=== PATIENT | female | born 1975 ===

== ENCOUNTER 2023-09-05 21:12 | Inpatient (IN) | payer OTHER, BC, SELFPAY ==
[2023-09-05 13:08] VITALS: BP 149/94
[2023-09-05 13:30] LABS: Urine Albumin Negative (Neg - Trace); Urine Bilirubin Negative (Negative); Urine Character Clear (Clear); Urine Color Yellow; Urine Glucose Negative (Negative); Urine Ketone Trace (Negative); Urine Leukocyte Trace (Negative); Urine Nitrite Negative (Negative); Urine Occult Blood Negative (Negative); Urine Specific Gravity 1.025 (<1.030); Urine Urobilinogen Negative (Neg - 1+)
[2023-09-05 13:30] LABS: % Basophils 0.3 % (0-2); % Eosinophils 3.1 % (0-6); % Immature Granulocytes 0.3 % (0-0.5); % Lymphocytes 32.6 % (20.5-51.1); % Monocytes 5.4 % (1.7-9.3); % Neutrophils 58.3 % (42.2-75.2); Absolute Eosinophils 0.2 10^3/uL (0-0.7); Absolute Monocytes 0.3 10^3/uL (0.1-0.6); Absolute Neutrophils 3.6 10^3/uL (1.4-6.5); Hematocrit 37.2 % (37.0-47.0); Hemoglobin 12.7 g/dL (12.0-16.0); Mean Corp Hgb Conc. 34.1 g/dL (33.0-37.0); Mean Corpuscular Hgb 29.6 pg (27.0-31.0); Mean Corpuscular Volume 86.7 fL (81.0-99.0); Nucleated Red Blood Cells % 0 %; Platelet Count 335 10^3/uL (130-400); Red Blood Cell Count 4.29 10^6/uL (4.20-5.40); Red Cell Dist. Width 13.1 % (11.5-14.5); White Blood Cell Count 6.1 10^3/uL (4.8-10.8)
[2023-09-05 13:45] LABS: Urine Mucus Many; Urine Red Blood Cell 0-2 /HPF (0-2); Urine Squamous Cell >30 /LPF (Few)
[2023-09-05 13:46] LABS: Urine Bacteria Few (Negative)
[2023-09-05 13:50] LABS: ALT (SGPT) 35 U/L (0-35); AST (SGOT) 34 U/L (14-36); Albumin 4.4 g/dl (3.5-5.0); Alkaline Phosphatase 96 U/L (38-126); Blood Urea Nitrogen 10 mg/dl (7-17); Calcium 8.8 mg/dl (8.4-10.2); Carbon Dioxide 26 mmol/L (22-30); Chloride 106 mmol/L (98-107); Glucose 79 mg/dl (70-99); Lipase 186 U/L (23-300); Potassium 3.9 mmol/L (3.5-5.1); Sodium 138 mmol/L (135-145); Total Bilirubin 0.5 mg/dl (0.2-1.3); Total Protein 7.1 g/dl (6.3-8.2); eGFR > 60.00
--- NOTE | 2023-09-05 16:19 | ED.GENMED ---
History of Present Illness
General
Chief Complaint: Abdominal Symptoms
Source: patient
Time Seen by Provider: 09/05/23 15:52
Travel History
Have you had any contact with someone who has COVID-19?: No
Do you have any symptoms of coronavirus? Fever > 100 degrees, chills, cough, shortness of breath, sore throat, loss of taste or smell, muscle aches, or headache?: No
History of Present Illness
History of Present Illness:
This patient is a very pleasant 47-year-old female who states she has had abdominal pain on the left upper quadrant extending the left lower quadrant for about 3 weeks. The pain is constant without exacerbating relieving factors, and is getting
progressively worse which prompted her visit here. She notes slight nausea but denies vomiting, anorexia, fever, chills, chest pain, dyspnea. She denies urinary symptoms. About 2 days ago, she noted occasional whitish foul-smelling discharge from
her umbilicus. She is unable to express that now.
Past History
Past History
ED Past Medical History: Other (Primary immunodeficiency, anxiety)
ED Past Surgical History: Other (Gastric vertical sleeve which was then converted to gastric bypass, lysis of adhesions, x 3, peritoneal ectomy, cholecystectomy)
Social History
Tobacco: Non-smoker
Alcohol: Occasional
Drug: None
Personal:
Living: with family
Phy Exam
Physical Exam
Physical Exam:
GENERAL: Alert , in no apparent distress
EYE: pupils equal and reactive
NECK: Supple, no significant adenopathy.
ENT: o/p clr, mmm.
CARDIAC: Regular rate and rhythm .
LUNGS: Clear breath sounds bilaterally, no acute respiratory distress, no wheezes/rales/rhonchi
ABDOMEN: Soft, mild left sided tenderness, no r/g, no cvat, no redness warmth swelling or discharge noted throughout abdominal wall including umbilicus
NEUROLOGICAL: Alert and oriented, no focal neuro deficits
SKIN: Warm and dry, skin intact.
MUSCULOSKELETAL: No edema, well perfused.
PSYCH: Normal and appropriate interaction.
Course
Orders/Labs/Results
Orders:
Orders
09/05/23 13:17
Complete Blood Count/With Diff Urgent
Comprehensive Metabolic Panel Urgent
Lipase Urgent
09/05/23 13:24
HCG, Urine Qualitative Screen Urgent
Date Specimen was Collected: 09/05/23
Time Specimen was Collected: 13:23
Comment: ADD ON
Urinalysis Reflex To Culture Urgent
Date Specimen was Collected: 09/05/23
Time Specimen was Collected: 13:23
Urine Microscopic Reflex Cult Urgent
09/05/23 Dinner
Clear Liquid
At Your Request: Full Participation
09/05/23 16:18
CT Abd/pel W Iv And Oral Contr Urgent
Comment:
Reason For Exam: HX GASTRIC BYPASS, L ABD PAIN PUS FROM UMBILICUS
Iohexol [Omnipaque] See Protocol PO NOW STA
09/05/23 16:19
Morphine Sulfate 4 mg IV NOW STA
09/05/23 16:42
Add On- LAB Urgent
Tests Added?: hcg qualitative, urine
09/05/23 18:14
Morphine Sulfate 4 mg IV NOW STA
09/05/23 19:42
Ketorolac [Toradol] 15 mg IV NOW STA
Piperacillin/Tazo 3.375 Gram [Zosyn] 3.375 gram in 50 ml IV NOW
09/05/23 20:48
Admit/Transfer Patient As Directed
Co-Sign Provider:
Level of Care: Inpatient admission
Assign to:: Medical/Surgical
Physician / Group: miguel smart
Diagnosis: abd pain w/ peritoneal tract to umbilicus
Reason for Hospitalization: abd pain w/ peritoneal tract to umbilicus
Expected length of stay greater than two midnights?: Yes
ELOS- Estimated Length of Stay in days: 3
I certify the patient meets the requirements for IP care: Yes
Code Status As Directed
Resuscitation Status: Full Code
09/05/23 20:53
SURGICAL CONSULT Routine
Consulting Provider: Keanu Montilla
Was physician already notified: Yes
Reason for consult: abd pain with peritoneal tract to umbilicus
09/05/23 22:39
Escitalopram Oxalate [Lexapro] 20 mg PO HS
Morphine Sulfate 2 mg IV Q4HPRN PRN
Ondansetron Injectable [Zofran] 4 mg IV Q6HPRN PRN
09/05/23 22:39
Activity As Directed
Activity Level: As Tolerated
Pneumatic Compression Sleeves As Directed
Type: Knee high
Vital Signs As Directed
Frequency: Per unit guidelines
Pt Eval And Treat Routine
Activity Level: As Tolerated
DX Deep Vein Thrombosis Video Routine
09/05/23 22:44
Morphine Sulfate 4 mg IV Q4HPRN PRN
09/06/23 02:00
Piperacillin/Tazo 3.375 Gram [Zosyn] 3.375 gram in 50 ml IV Q6H
09/06/23 05:49
Basic Metabolic Panel IN AM
Complete Blood Count/With Diff IN AM
Abnormal Lab Results
09/05/23 09/05/23
13:17 13:24
Creatinine 0.4 L mg/dL
(0.6-1.0)
Urine Ketones Trace A
(Negative)
Leukocyte Esterase Rfl Trace A
(Negative)
Urine Bacteria (Reflex) Few A
(Negative)
09/05/23 13:17
09/05/23 13:17
Vital Signs
Initial and Last Documented VS:
Initial Vital Signs
Temp Pulse Resp BP Pulse Ox
98.2 F 79 16 149/94 98
09/05/23 13:08 09/05/23 13:08 09/05/23 13:08 09/05/23 13:08 09/05/23 13:08
Last Documented Vital Signs
Temp Pulse Resp BP Pulse Ox
98.1 F 78 17 134/81 96
09/06/23 08:00 09/06/23 08:00 09/06/23 08:00 09/06/23 08:00 09/06/23 08:00
*Critical Care Note
Total Time (30-74mins, 75-104mins- exclusive of procedures): Not Applicable
Update Note
Update Note:
Patient presents to the Emergency Department with __abdominal pain
Number and Complexity of Problems Addressed at the Encounter
� Chronic conditions affecting care:
� Acute Exacerbation and/or Progression of Chronic Illness:
� Differential Diagnosis includes: But not limited to kidney stone, diverticulitis, intra-abdominal abscess, etc.
Amount and/or Complexity of Data to be Reviewed and Analyzed
� I performed an independent evaluation of and my interpretation is:
EKG:
CT:Edematous changes of the superficial fatty soft tissues of the anterior abdominal wall including about the umbilicus. Thin oblique umbilical 'tract' from the anterior peritoneum to the skin surface of the umbilicus without
discrete accompanying well-formed abnormal focal fluid collection.
Xrays:
Laboratory Studies:generally unremarkable
Other:
� Review of other/old records reveals:
� Clinical information was obtained by an independent historian:
� Prescriptions/Medications Considered but not given:
� Further testing considered but not performed:
Risk of Complications and/or Morbidity or Mortality of Patient Management
� Social determinants of health affecting care:
� Discussion with other providers (PCP, Hospitalists, Consultants, etc): 745 pm Pt wtill with pain and mild ttp, no r/g. Not septic. CT noted, no obstruction, abscess, etc however tract noted. Given immunodeficiency, will
adminster IV abx, surgical c/s in AM to assess further, hospitalist aware. (D/w dr Montilla).
� Escalation of care including admission/observation vs risk of discharge considered:
ED Attending Note
-
Portions of this chart may have been created with voice recognition software.� Occasional wrong word or��sound alike� substitutions may have occurred due to the inherent limitations of voice recognition software.
Discharge Plan
Departure
Patient Disposition: Admit
Date of Disposition: 09/05/23
Time of Disposition: 19:45
Admit to: Med/Surg
Presentation/result/management discussed w/ accepting MD/DO: Hospitalist
Condition: Fair
Discharge Problem:
Abdominal pain
Interventions
Interventions:
*Risk Screen - Suicide Last Done: 09/05/23 17:52
*General Assessment Last Done: 09/05/23 17:52
*Neglect/Abuse Screening Last Done: 09/05/23 17:52
ED- Fall Risk Assessment Last Done: 09/06/23 07:05
*ED COVID-19 Vaccine History Last Done: 09/05/23 13:08
*Nursing Disposition Last Done: 09/06/23 07:05
BJ-Nbicmu-Urarmfrgrj Assessment Last Done: 09/06/23 00:00
Discharge Date and Time
Discharge Date/Time: 09/06/23 14:13
[2023-09-05] MEDS: MORPHINE SULFATE 4 MG IV ×2 (16:32→18:18)
[2023-09-05] MEDS: OMNIPAQUE 50 ML PO (16:33)
[2023-09-05 17:17] LABS: HCG, Urine Qualitative Screen Negative
[2023-09-05 18:04] VITALS: BP 134/93
[2023-09-05] MEDS: ZOSYN 50 IV (19:48)
[2023-09-05] MEDS: TORADOL 15 MG IV (19:48)
--- NOTE | 2023-09-05 19:59 | HPS.HSE ---
Family Physician
<EARL Lombardi - Last Filed: 09/05/23 20:55>
-
Family Physician: Nick Quintero MD
Chief Complaint
<EARL Lombardi - Last Filed: 09/05/23 20:55>
-
abd pain x 3 weeks, umbilical drainage 1 day
History of Present Illness
47-year-old female complaining of abdominal pain left upper quadrant to left lower quadrant for approximately 3 weeks progressively getting worse. She noted some white malodorous white drainage from her umbilicus. The patient on Wegovy for the
last 8 months has chronic pudding-like stool. She has not noted any changes in her stool pattern. She does have multiple old laparoscopic sites around umbilicus and left side of abdomen due to gastric sleeve/bypass. She has past medical history
of primary immunodeficiency, anxiety, gastric sleeve 2016 converted to gastric bypass 2019, abdominoplasty with 160 degree Panniculectomy, 2018 history of abdominal lysis of adhesions section x 3, cholecystectomy
Medical History
<EARL Lombardi - Last Filed: 09/05/23 20:55>
Past Medical History
Past Medical History: Reports Other
Additional Past Medical History:
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
anxiety
Past Surgical History: Reports Other
Additional Past Surgical History:
gastric sleeve 2016 converted to gastric bypass fall 2018
Abdominoplasty with panniculectomy 160 degree
history of abdominal lysis of adhesions
section x 3
cholecystectomy
Sinus surgery
Tonsillectomy
Social History
Tobacco: Non-smoker
Alcohol: None
Drug: None
Personal:
Living: With Family
Employment: Employed
Family History
Family History: Other (Father living colon cancer remission, active small cell lung cancer mom living past medical history of PE, primary immunodeficiency (specific antibody deficiency), oldest son also with same)
Allergies / Home Medications
Allergies reflects when Allergies were last updated in [employer].
Home Medications with original date entered in [employer]
Allergy/Medication List:
Allergies
Allergy/AdvReac Type Severity Reaction Status Date / Time
acetaminophen [From Vicodin] Allergy Swelling Verified 09/05/23 13:12
hydrocodone [From Vicodin] Allergy Swelling Verified 09/05/23 13:12
Home Medications
Hizentra 0 mg SC BOWENS 09/05/23
escitalopram oxalate 20 mg tablet 20 mg PO HS 09/05/23
semaglutide (weight loss) 1.7 mg/0.75 mL subcutaneous pen injector (Wegovy) 1.7 mg SC SA 09/05/23
Review of Systems
<EARL Lombardi - Last Filed: 09/05/23 20:55>
-
History Source: Patient
A 12 point ROS was completed and negative except as noted: Yes
Constitutional: Denies Fever or Chills
EENT: Denies Runny Nose
Respiratory: Denies Cough or Trouble Breathing
Cardiac: Denies Chest Pain or Diaphoresis
Abdomen/GI: Reports Abdominal Pain (Umbilicus to left side abdomen in the left lower quadrant) and Other (Chronic pudding-like stools x 8 months while on Wegovy); Denies Nausea, Vomiting, Diarrhea, Constipated, Bloody Stools or Black Stools
: Denies Dysuria, Frequency, Flank Pain, Incontinence, Difficulty Voiding or Urgency
Musculoskeletal: Denies Joint Pain or Edema
Skin: Denies Itching or Rash
Neurological: Denies Dizzy, Headache or Weakness
Endocrine: Reports No Symptoms
Hematologic/Lymphatic: Reports No Symptoms
Psych: Reports Calm
Physical Exam
<EARL Lombardi - Last Filed: 09/05/23 20:55>
Vital Signs
Vital Signs
Temp Pulse Resp BP Pulse Ox
98.2 F 71 16 134/93 98
09/05/23 13:08 09/05/23 18:04 09/05/23 13:08 09/05/23 18:04 09/05/23 13:08
Physical Exam
General: Comfortable and Conversant; No Fever or Chills
HEENT: NormoCephalic, Anicteric, Moist mucous membranes, PERRLA, [place] Conjunctivae and No Ptosis
Respiratory: Clear; No Wheezes, Rales or Rhonchi
Cardiac: S1/S2 and Regular Rhythm; No Murmur, Rub, Gallop or Peripheral Edema
Breast: Deferred by me
GI: Soft, Non Distended, Normal Bowel Sounds and Tender (Left mid to left lower quadrant abdomen and around umbilicus no current drainage from umbilicus, several areas of old scarring from laparoscopic abdominal sites around [place] and left side
abdomen)
Rectal: Deferred by Provider
Genito-urinary: Deferred by me
Musculoskeletal: No Clubbing, No Cyanosis and No Edema
Skin: Warm and Dry; No Rash
Neuro: AO x 3, No Motor Deficits, Nonfocal/grossly intact, Cranial Nerves Intact and No Sensory Deficits; No Slurred Speech, Facial Droop or Tremors
Psych: Calm
Laboratory Results
<EARL Lombardi - Last Filed: 09/05/23 20:55>
-
09/05/23 13:17
09/05/23 13:17
Laboratory Results
Total Bilirubin 0.5 mg/dl (0.2-1.3) 09/05/23 13:17
AST 34 U/L (14-36) 09/05/23 13:17
ALT 35 U/L (0-35) 09/05/23 13:17
Alkaline Phosphatase 96 U/L (38-126) 09/05/23 13:17
Lipase 186 U/L (23-300) 09/05/23 13:17
Impression/Plan
<EARL Lombardi - Last Filed: 09/05/23 20:55>
-
Impression/plan:
INpt MedSurg
#ABD pain/umbilical drainage secondary to tract and anterior peritoneum likely 2/2 to multiple laproscopic abd procedures
-Consult Surgery dr romero aware
-IV Zosyn
-Morphine as needed pain
-Follow CBC, BMP
CT abdomen pelvis with IV and oral contrast:
1. Edematous changes of the fatty soft tissues anterior abdominal wall including the umbilicus with umbilical tract from the anterior peritoneum to the skin surface without discrete well-formed focal fluid collection
2. Distal small bowel and large bowel Limited evaluation without oral contrast opacification
3. IUD seen in uterus
4. Prior cholecystectomy
5. Small hiatal hernia
#Hx gastric sleeve 2016 converted to gastric bypass 2019
#Abdominoplasty with 160 panniculectomy 2018
#History lysis of adhesions
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
oldest son also with same
-Patient follows with immunology at [facility]
#Anxiety
-Continue Lexapro
Obesity due to excess calorie consumption
Patient on Wegovy for the last 8 months has chronic pudding-like stool
DVT prophylaxis
SCDs
Full code
<Poppy Hanna MD - Last Filed: 09/05/23 21:15>
-
Impression/plan:
INpt MedSurg
#ABD pain/umbilical drainage secondary to tract and anterior peritoneum likely 2/2 to multiple laproscopic abd procedures
-Consult Surgery dr romero aware
-IV Zosyn
-Morphine as needed pain
-Follow CBC, BMP
CT abdomen pelvis with IV and oral contrast:
1. Edematous changes of the fatty soft tissues anterior abdominal wall including the umbilicus with umbilical tract from the anterior peritoneum to the skin surface without discrete well-formed focal fluid collection
2. Distal small bowel and large bowel Limited evaluation without oral contrast opacification
3. IUD seen in uterus
4. Prior cholecystectomy
5. Small hiatal hernia
#Hx gastric sleeve 2016 converted to gastric bypass 2019
#Abdominoplasty with 160 panniculectomy 2018
#History lysis of adhesions
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
oldest son also with same
-Patient follows with immunology at [facility]
#Anxiety
-Continue Lexapro
Obesity due to excess calorie consumption
Patient on Wegovy for the last 8 months has chronic pudding-like stool
DVT prophylaxis
SCDs
Full code
Seen and examined and discussed with nurse practitioner in detail I am in agreement with plan and management mentioned by nurse practitioner.
Seen and examined, awake and alert, presented to the hospital complaining of pain in the right and left side abdominal pain were also having some purulent discharge from the umbilicus, she is injecting herself.
With GLP-1 and some other biological agent.
CT showed subcutaneous abscess
Vital signs reviewed
Physical exam:
General: Awake, alert and oriented x3, not in distress and holds appropriate conversation.
HEENT: No active discharge, ecchymosis or bruising, moist lips, tongue and mucous membrane.
Eyes: No discharge or red conjunctiva, no nystagmus, pupils are reactive and equal
Neck:Supple, no JVD no bruit no goiter.
Respiratory: Normal AP contour and diameter, normal chest wall movement, normal respiratory effort, no respiratory distress,
Lungs: Good air entry bilaterally, no wheezing or rhonchi, no rales or crackles
Heart: S1, S2 regular, normal rate, no added sound.
Gastrointestinal: Ecchymosis and bruising, positive bowel sounds, soft, tenderness in the left side and periumbilical area, no guarding or rigidity or organomegaly
Musculoskeletal: , no chest wall abnormality or tenderness. All joints and extremities have good range of motion, no muscle tenderness or any joint swelling or tenderness.
Extremities: No pitting edema, good peripheral pulses, good range of motion
Skin: Warm and dry, no ulceration, normal color.
Neurological: Awake, alert and oriented x3, speech clear and comprehensive, good muscle tone, normal sensory and motor function
Psychiatric: Normal mood, normal thought and judgment, normal affect,
Workup including labs, imaging, EKG and archive reviewed.
Assessment and plan:
Abdominal pain, concerning for percutaneous abscess with tracking may be deep down, may be triggered by the subcutaneous injection she get with GLP-1 and Hizentra and other causes may need to be considered
IV Vanco and Zosyn
Surgery consult, surgery been contacted.
Culture of the drainage if any
Chronic immunodeficiency syndrome
GERD biological agent
Anxiety on Lexapro
All discussed with the patient and the family
Discussed with nurse practitioner
[2023-09-05 20:06] VITALS: BP 130/87
[2023-09-05 21:56] VITALS: BMI 28.9
[2023-09-05 22:14] VITALS: BP 142/93
[2023-09-05 22:25] VITALS: BP 136/86
--- NOTE | 2023-09-05 22:30 | PHA.VAN.IN ---
Assessment
- Assessment
Renal Function: Unknown baseline
Concomitant Antimicrobials: ZOSYN
- Previous Dosing Experience
Previous Regimen: NONE
AUC Dosing Plan
- Dosing Variables
Dosing Weight (kg): 91.3
Dosing CrCl (ml/min): 100
Vd coefficient (L/kg): 0.7
- Empiric Dosing
Initial / Loading Dose: 2GM
Maintenance Regimen: 1250MG IV Q12H
Estimated AUC (mcg*h/mL): 477
Estimated Peak (mcg*h/mL): 30.1
Estimated Trough (mcg/ml): 12
Estimated Half Life (H): 7.9
Pharmacokinetics Vancomycin I
- -
Patient Age: 47
Patient Sex: Female
Vancomycin Day #: 1
Indication: Skin And Soft Tissue (UMBILICAL DRAINAGE)
Requesting Provider: ZEKE
Height / Weight:
Height 5 ft 10 in
Actual Weight 91.3 kg
Pertinent Past Medical History: MULTIPLE LAPROSCOPIC PROCEDURES
- Vital Signs / Lab Results
Temp Pulse Resp BP Pulse Ox
98.2 F 62 16 142/93 98
09/05/23 13:08 09/05/23 22:14 09/05/23 13:08 09/05/23 22:14 09/05/23 22:14
Lab Results - Hematology
09/05/23
13:17
WBC 6.1
Lab Results - Chemistry
09/05/23
13:17
BUN 10
Creatinine 0.4 L
Albumin 4.4
Lab Results - Urine
09/05/23
13:24
Urine Nitrite (Reflex) Negative
Leukocyte Esterase Rfl Trace A
Urine WBC (Reflex) 3-5
Ur Squamous Epith Cells >30
Urine Bacteria (Reflex) Few A
[2023-09-05] MEDS: VANCOCIN 540 MG IV (22:50)
[2023-09-05 23:00] VITALS: BP 138/87
[2023-09-05] MEDS: LEXAPRO 20 MG PO (23:00)
[2023-09-05] MEDS: ZOFRAN 4 MG IV (23:01)
[2023-09-05] MEDS: ULTRAM 50 MG PO (23:57)
[2023-09-05] MEDS: MELATONIN 5 MG PO (23:57)
[2023-09-06] VITALS: BP 137/79
[2023-09-06] MEDS: ZOSYN 50 IV ×2 (02:49→08:09)
[2023-09-06] MEDS: VANCOCIN 275 MG IV (06:16)
[2023-09-06 06:30] LABS: % Basophils 0.4 % (0-2); % Eosinophils 4.1 % (0-6); % Immature Granulocytes 0.4 % (0-0.5); % Lymphocytes 30.6 % (20.5-51.1); % Monocytes 7.2 % (1.7-9.3); % Neutrophils 57.3 % (42.2-75.2); Absolute Eosinophils 0.2 10^3/uL (0-0.7); Absolute Lymphocytes 1.7 10^3/uL (1.2-3.4); Absolute Monocytes 0.4 10^3/uL (0.1-0.6); Absolute Neutrophils 3.2 10^3/uL (1.4-6.5); Hematocrit 35.5 % (37.0-47.0); Mean Corp Hgb Conc. 33.8 g/dL (33.0-37.0); Mean Corpuscular Hgb 29.7 pg (27.0-31.0); Mean Corpuscular Volume 87.9 fL (81.0-99.0); Mean Platelet Volume 10.3 fL (7.4-10.4); Nucleated Red Blood Cells % 0 %; Platelet Count 270 10^3/uL (130-400); Red Blood Cell Count 4.04 10^6/uL (4.20-5.40); Red Cell Dist. Width 12.8 % (11.5-14.5); White Blood Cell Count 5.6 10^3/uL (4.8-10.8)
[2023-09-06 06:41] LABS: Blood Urea Nitrogen 9 mg/dl (7-17); Calcium 8.6 mg/dl (8.4-10.2); Carbon Dioxide 28 mmol/L (22-30); Chloride 104 mmol/L (98-107); Estimated Creatinine Clearance > 125 ml/min; Glucose 81 mg/dl (70-99); Potassium 3.8 mmol/L (3.5-5.1); Sodium 138 mmol/L (135-145); eGFR > 60.00
[2023-09-06 08:00] VITALS: BP 134/81
--- NOTE | 2023-09-06 09:16 | PHA.VAN.FU ---
Vancomycin Assessment / Plan
- Assessment
Renal Function: Stable
WBC's are: WNL
Concomitant Antimicrobials: piperacillin/tazobactam
- Dosing Plan
Adjust Regimen to: Vanc 1500mg Q12H starting at 1800
New Regimen Predicts: AUC (471), Peak (32.4), Trough (10.4)
- Monitoring Plan
No level(s) ordered at this time: consider levels in next few days
- Follow Up
Pharmacy will continue to follow.
Vancomycin Follow UP
- -
Patient Age: 47
Patient Sex: Female
Vancomycin Day #: 2
Indication: Skin And Soft Tissue
Requesting Provider: Dr. Hanna
Pertinent Antimicrobial Allergies:
no pertinent antibiotic allergies
Height / Weight:
Height 5 ft 10 in
Actual Weight 91.3 kg
- Vital Signs / Lab Results
Temp Pulse Resp BP Pulse Ox
98.1 F 78 17 134/81 96
09/06/23 08:00 09/06/23 08:00 09/06/23 08:00 09/06/23 08:00 09/06/23 08:00
Lab Results - Hematology
09/05/23 09/06/23
13:17 05:49
WBC 6.1 5.6
Lab Results - Chemistry
09/05/23 09/06/23
13:17 05:49
BUN 10 9
Creatinine 0.4 L 0.5 L
Estimated Creat Clear > 125
Albumin 4.4
Lab Results - Urine
09/05/23
13:24
Urine Nitrite (Reflex) Negative
Leukocyte Esterase Rfl Trace A
Ur Squamous Epith Cells >30
--- NOTE | 2023-09-06 11:05 | CON.GS ---
Medical History
-
Chief Complaint: LEFT sided abdominal discomfort and umbilical drainage
History of Present Illness:
Patient is a 47 yo F with a PMH of anxiety/depression, primary immunodeficiency (follows at [facility]), s/p x 3, s/p cholecystectomy, obesity s/p sleeve gastrectomy converted to laparoscopic RYGB c/b adhesions s/p laparoscopic MICHAEL, and s/p
abdominoplasty. Ms. Waters presents with vague LEFT sided abdominal discomfort over the past several weeks to months. She describes this as a constant achy sensation. No association with oral intake. No nausea or vomiting, continues to move
bowels, no issues with constipation. Of note, she does perform injections of Wegovy on that side and has noted some mild bruising. She also reports some intermittent white drainage from her umbilicus. She states that this first began few days
ago. She denies any constant drainage. No significant pain or discomfort overlying her umbilicus. No increased swelling around her umbilicus. No fevers or chills. Of note, all of her prior surgical procedures were performed out in [place] at
[facility].
Past Medical History
Past Medical History: Psychiatric (Depression/anxiety) and Other (Primary immunodeficiency)
Past Surgical History: Bariatric (Laparoscopic sleeve gastrectomy converted to laparoscopic RYGB c/b adhesions s/p MICHAEL), Cholecystectomy, Gynecological ( x3) and Other (Abdominoplasty)
Social History
Tobacco: Non-Smoker
Alcohol: Occasional
Drug: None
Personal:
Living: With Family
Family History
Family History: Reviewed & Not Pertinent
Allergies / Home Medications
Allergy/AdvReac Type Severity Reaction Status Date / Time
acetaminophen [From Vicodin] Allergy Swelling Verified 09/05/23 13:12
hydrocodone [From Vicodin] Allergy Swelling Verified 09/05/23 13:12
Medication Instructions Recorded Confirmed Type
Hizentra 0 mg SC BOWENS immuno deficiency 09/05/23 09/05/23 History
escitalopram oxalate 20 mg tablet 20 mg PO Mental Health 09/05/23 09/05/23 History
semaglutide (weight loss) 1.7 1.7 mg SC SA endocrine 09/05/23 09/05/23 History
mg/0.75 mL subcutaneous pen
injector (Wegovy)
Review of Systems
-
A 10 point review of systems was completed, and was negative except as per HPI.
Physical Exam
Vital Signs
Temp Pulse Resp BP Pulse Ox
98.1 F 78 17 134/81 96
09/06/23 08:00 09/06/23 08:00 09/06/23 08:00 09/06/23 08:00 09/06/23 08:00
09/05/23 09/06/23 09/07/23
06:59 06:59 06:59
Actual Weight 91.3 kg
Body Mass Index (BMI) 28.9
Lab Results
09/06/23 05:49
09/06/23 05:49
WBC 5.6 10^3/uL (4.8-10.8) 09/06/23 05:49
Hgb 12.0 g/dL (12.0-16.0) 09/06/23 05:49
Hct 35.5 % (37.0-47.0) L 09/06/23 05:49
Plt Count 270 10^3/uL (130-400) 09/06/23 05:49
Abs Immat Gran (auto) 0.0 10^3/uL (0-0.05) 09/06/23 05:49
Neutrophils % 57.3 % (42.2-75.2) 09/06/23 05:49
Physical Exam
General: Well Developed, Well Nourished and No Apparent Distress
HEENT: Normocephalic and Anicteric
Respiratory: Non Labored Respirations
Cardiac: Regular Rhythm
GI: Soft, Non Tender, Non Distended, Incisions (Well healed) and Other (Ecchymosis of LEFT abdomen, dry erythema of umbilicus, of note umbilicus is small and deep, no active drainage)
Musculoskeletal: No Edema
Skin: Warm and Dry
Neuro: Nonfocal/Grossly Intact
Data Reviewed
-
CT Scan: Image Personally Visualized and interpreted and Report Reviewed by me
Labs: Labs Reviewed by me
Assessment / Plan
-
Patient is a 47 yo F p/w left-sided abdominal discomfort.
Difficult to discern if the symptoms are related or separate, suspect that they are separate. Umbilical drainage most likely related to a fungal infection given the dry erythematous nature of her umbilical skin and anatomy (deep narrow umbilicus.
We discussed the possibility of a deeper stitch abscess related to her abdominoplasty. No abdominal wall abscess visualized on CT scan imaging. Recommend a topical or oral antifungal, and cleaning the deeper aspect of her umbilicus with a Q-tip.
Recommend outpatient follow-up with a Plastic surgeon to consider revision or removal. Regarding her LEFT sided abdominal discomfort, there is no intra-abdominal pathology appreciated on CT scan imaging. There is no dilated or inflamed bowel. No
evidence of obstruction. No evidence of swelling concerning for incisional hernia. Possible that she has discomfort related to chronic adhesions, would not recommend surgery at this time. Differential also includes discomfort related to
subcutaneous and abdominal wall abscess from injections. We discussed performing injections on the right side. Discussed follow-up with a Bariatric Surgery program.
-- No plans or indication for surgical intervention
-- Topical or oral antifungal for umbilicus, outpatient referral to Plastic Surgeon
-- Perform injections on the RIGHT abdomen for the next month, follow-up with Bariatric Surgery program
--- NOTE | 2023-09-06 11:31 | W.PN.HOSP.TC ---
Today's Communication/Plan
-
Resume diet
Discharge
Assessment / Plan
Assessment / Plan
Gen-AAOx3, NAD
HEENT-NC, AT, anicteric, clear oral mm
Neck-supple
CV-reg, no M, +S1/S2
Lungs-clear B/L
Abd-soft, nondistended, mild left-sided tenderness, no guarding
Ext-no edema
Musculoskeletal-no cyanosis, clubbing
Skin-warm and dry
Neuro-grossly non-focal
Psych-calm, cooperative
Abdominal wall subcutaneous infection - no discrete abscess noted on CT scan. No signs or symptoms of sepsis. Discussed with general surgery. Okay to resume diet today and discharge on oral antibiotics.
Outpatient follow-up. Recommend injections on the right side of the abdomen for the next month. Outpatient plastic surgery follow-up.
Full code
Dispo -stable for discharge today.
Anticipated Discharge: Today
Subjective/Interval History
-
Date of Service: September 06, 2023
Seen and examined. Sleeping when I walked in, complaining of mild left-sided abdominal pain when awake.
Objective Data
-
Labs:
Laboratory Results
09/06/23
05:49
WBC 5.6
Hgb 12.0
Hct 35.5 L
Plt Count 270
Sodium 138
Potassium 3.8
Chloride 104
Carbon Dioxide 28
BUN 9
Creatinine 0.5 L
Glucose 81
Calcium 8.6
Vital Signs:
Vital Signs
Temp Pulse Resp BP Pulse Ox
98.1 F 78 17 134/81 96
09/06/23 08:00 09/06/23 08:00 09/06/23 08:00 09/06/23 08:00 09/06/23 08:00
Review of Systems
-
History Source: Patient
All other systems: Reviewed and negative
--- NOTE | 2023-09-06 11:43 | W.DS.TRANS ---
DC Summary - [employer]
-
Discharge Instructions:
Discharge Diagnosis/Procedures Abdominal subcutaneous infection
Diet Regular
Activity As tolerated
Driving Restrictions As prior to admission
Bathing Restrictions None
Instructions:
Stand-Alone Forms:
Changes to Home Medications: No
Discharge Medications:
DC Medications w/original date entered in [facility]
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
escitalopram oxalate 20 mg tablet 20 mg PO Mental Health 09/05/23
semaglutide (weight loss) 1.7 mg/0.75 mL subcutaneous pen injector (Wegovy) 1.7 mg SC SA endocrine 09/05/23
amoxicillin 875 mg-potassium clavulanate 125 mg tablet 1 tab PO BID #14 tabs 09/06/23
nystatin 100,000 unit/gram topical cream 1 applic topical BID #15 grams 09/06/23
Home Medication Changes
Pending Results: No
[2023-09-06] MEDS: ZOFRAN ODT (ORALLY DISINTEGRATING) 4 MG PO ×2 (12:27)
--- NOTE | 2023-09-06 12:44 | CM ---
CM reviewed medical records. Patient is medically ready for discharge to home. No home needs noted.
PLAN: home no needs.
== END 2023-09-06 12:46 | disposition home or self-care (01) | DRG 603 ==
LOC: ED 21:12
PROVIDERS: Clinical Nurse Specialist Family Health; Emergency Medicine; ADMITTING PHYSICIAN Internal Medicine; ATTENDING PHYSICIAN Hospitalist; CONSULT PHYSICIAN Surgery; EMERGENCY PHYSICIAN Emergency Medicine; FAMILY PHYSICIAN Internal Medicine
DX: L08.89 Other specified local infections of the skin and subcutaneous tissue (principal); D80.9 Immunodeficiency with predominantly antibody defects, unspecified; F41.9 Anxiety disorder, unspecified; K21.9 Gastro-esophageal reflux disease without esophagitis; F32.A Depression, unspecified; K44.9 Diaphragmatic hernia without obstruction or gangrene; E66.09 Other obesity due to excess calories; Z68.28 Body mass index [BMI] 28.0-28.9, adult; Z90.49 Acquired absence of other specified parts of digestive tract; Z98.84 Bariatric surgery status; Z80.0 Family history of malignant neoplasm of digestive organs; Z80.1 Family history of malignant neoplasm of trachea, bronchus and lung; Z88.6 Allergy status to analgesic agent; Z88.5 Allergy status to narcotic agent; Z79.85 Long-term (current) use of injectable non-insulin antidiabetic drugs
CPT/HCPCS: 74177; 80048; 80053; 81003; 81015; 81025; 83690; 85025; 93005; 96365; 96375; 96376; 99285; Q9967